=== PATIENT | female | born 1995 | race Caucasian/White ===

== ENCOUNTER 2020-02-23 13:00 | Outpatient (RCR) | payer OTHER, MEDICAID, SELFPAY ==
--- NOTE | 2020-01-27 18:53 | PT.OIE ---
Current Diagnoses Difficulty in walking, not elsewhere classified (01/27/20) Laceration of muscle and tendon of long extensor muscle of toe at ankle and foot level, left foot, initial encounter (01/27/20) Visit Care Team Role Provider Type Robert Aguilar DPM Attending Provider Non-Staff Primary Care Provider Referring Provider Specialty: Podiatry Address: [address] [place] [address], [phone] Email: Physical Therapy Initial Evaluation PT-OP-A Visit Information Start: 01/31/20 14:50 Freq: Status: Active Protocol: Document 01/27/20 15:15 AW (Rec: 01/31/20 15:52 AW [id number]) Out-Patient Physical Therapy Visit Information Visit Information Visit Type Initial Evaluation Visit Start Time 14:30 Visit Stop Time 15:15 Total Visit Minutes 45 Visit Number 12/25 Number of PET CARE ATTENDANT Visits 0 Evaluation Information Evaluation Date 01/27/20 PT-OP-B Current Condition Start: 01/31/20 14:50 Freq: Status: Active Protocol: Document 01/27/20 15:15 AW (Rec: 01/31/20 15:52 AW [id number]) Current Condition History of Current Condition Onset Date 12/18/19 Current Complaints left EHL laceration History of Current Condition While making dinner on , pt dropped a universal grinder tool on top of her left foot, resulting in laceration. She went to ED where her wound was closed with stitches, she was placed in a walking boot, and was referred to podiatry for laceration of her EHL tendon. Dr. Aguilar performed EHL tendon repair on 12/25/19. She used the boot realtime reporter for a week or two after surgery, but lately has been wearing it only out of the house. She reports limited pain/twinges with active great toe extension/toe-off when out of boot. She does have an area of numbness lateral to her surgical scar. Prior Treatments and Tests EHL tendon repair 12/25/19 Future Testing and Treatments Planned None identified. 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 PT-OP-C Subjective Start: 01/31/20 14:50 Freq: Status: Active Protocol: Document 01/27/20 15:15 AW (Rec: 01/31/20 15:52 AW [id number]) Patient Questionnaires Foot & Ankle Ability Measure- ADL and Sports FAAM-ADL Score 46/84 FAAM-ADL Impairment 40 to 59% Impaired (Score 33- 49) FAAM-Sport Score 0/28 FAAM-Sport Impairment 100% Impaired (Score 0) Lower Extremity Functional Scale LEFS Score 30/80 LEFS Impairment 60 to 79% Impaired (Score 17- 31) OP-PT Pain Assessment Pain Assessment Grid Paper Pain Assessment Grid Completed Yes Comments Pain Comments Pt notes pain in plantar left foot (1/10) and left distal posterior calf/tricpes surae insertion (2/10). PT-OP-G Mobility & Gait Start: 01/31/20 14:50 Freq: Status: Active Protocol: Document 01/27/20 15:15 AW (Rec: 01/31/20 15:52 AW [id number]) OP Gait Assessment Comments Gait Comments Pt demonstrates decreased LLE stance time, early LLE heel rise, lack of ankle rocker, decreased LLE toe off at terminal stance. PT-OP-K Range of Motion Start: 01/31/20 14:50 Freq: Status: Active Protocol: Document 01/27/20 15:15 AW (Rec: 01/31/20 15:52 AW [id number]) Knee Goniometric Range of Motion Knee Left Knee ROM WFL Yes Knee ROM Limitations Comments WNL bilaterally Ankle and Foot Goniometric Range of Motion Ankle and Foot Left Active Testing Position Supine Dorsiflexion with Knee Flexed 3 Dorsiflexion with Knee Extended 0 Right Active Testing Position Supine Dorsiflexion with Knee Flexed 12 Dorsiflexion with Knee Extended 12 Toe Range of Motion Toe Left Great Toe MTP Flexion Active (degrees) 14 MTP Extension Active (degrees) 35 DIP Flexion Passive (degrees) 25 Right Great Toe MTP Flexion Active (degrees) 30 MTP Extension Active (degrees) 75 DIP Flexion Active (degrees) 30 Toes ROM Limitations Toe ROM Limitations Muscle Weakness Comments Left great toe rests in adduction at IP joint with limited active extension, flexion, abduction PT-OP-M Strength Start: 01/31/20 14:50 Freq: Status: Active Protocol: Document 01/27/20 15:15 AW (Rec: 01/31/20 15:52 AW [id number]) Ankle/Foot Strength Ankle and Foot Manual Muscle Testing Left Dorsiflexion (L4) 4- Good- Plantarflexion (S1) 4- Good- Inversion 4- Good- Eversion (S1) 4- Good- Right Dorsiflexion (L4) 5 Normal Plantarflexion (S1) 5 Normal Inversion 5 Normal Eversion (S1) 5 Normal Toe Strength Toe Manual Muscle Testing Left Great Toe Flexion 4- Good- Extension 3+ Fair+ Right Great Toe Flexion 5 Normal Extension 5 Normal PT-OP-Q Treatments Start: 01/31/20 14:50 Freq: Status: Active Protocol: Document 01/27/20 15:15 AW (Rec: 01/31/20 15:52 AW [id number]) Therapeutic Exercises Sitting Exercises resisted ankle DF Sitting Exercise Name resisted ankle DF Side left Resistance level 1 Equipment Used TB Reps/Minutes 10 reps x 2 seated toe flexion extension PROM Sitting Exercise Name seated toe flexion extension PROM Side left Reps/Minutes 2 minutes Comments MTP and IP with cues for stabilizing proximally Standing Exercises gastroc/soleus stretch Standing Exercise Name gastroc/soleus stretch Side bilateral Reps/Minutes 2 min each position Comments cues to avoid painful range for left soleus PT-OP-T Assessment and Plan Start: 01/31/20 14:50 Freq: Status: Active Protocol: Document 01/27/20 15:15 AW (Rec: 01/31/20 15:52 AW [id number]) Physical Therapy Assessment Rehab Potential Rehabilitation Potential Excellent Evaluation Complexity Number of Personal Factors/Comorbidities 1-2 Number of Body Systems Impaired 1-2 Clinical Presentation at Evaluation Stable Impairments Impairments Activity Tolerance,Balance, Functional Activities, Functional Mobility,Gait,Pain, ROM,Sensation,Soft Tissue Mobility,Strength Goals Four Impairment limited ROM affecting involvement in regular activity Custodial Goal (LTG) Pt will return to yoga practice with limited modifications LTG Duration 04/20/2020 Three Impairment activity tolerance Short Term Goal (STG) Pt will walk 1/2 mile on even terrain without walking boot for enjoyment/exercise without increase in discomfort STG Duration 03/09/2020 Custodial Goal (LTG) Pt will walk 2 miles on even terrain without walking boot for enjoyment/exercise without increase in discomfort or 1 mile uneven terrain LTG Duration 04/20/2020 Two Impairment impairment in daily function ( 62.5% on LEFS) Short Term Goal (STG) Pt will score 45/80 or better on LEFS to demonstrate improved daily function STG Duration 03/09/2020 Butane Compressor Operator Goal (LTG) Pt will score 60/80 or better on LEFS to demonstrate improved daily function LTG Duration 04/20/2020 One Impairment pt lacks appropriate HEP Short Term Goal (STG) Pt will be independent with HEP for support of therapy services provided in clinic STG Duration 03/09/2020 Butane Compressor Operator Goal (LTG) Pt will be independent with maintenance HEP to sustain gain made in therapy LTG Duration 04/20/2020 Assessment Summary Assessment Zaid presents to outpatient PT as a low complexity evaluation one month following surgical repair of lacerated left EHL tendon. The injury was a result of trauma. 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 On exam, she demonstrates impaired left ankle and great toe range of motion and strength. In addition, her left great toe rests in adduction at the IP joint. Her injury and resulting impairments are limiting her ability to participate in her daily activities such as yoga, walking for pleasure, and work duties. She will benefit from skilled PT to address these impairments for return to prior level of function and to avoid risks associated with prolonged immobility. Physical Therapy Plan Frequency and Duration Frequency of Treatment 2x/Week Duration of Treatment 12 weeks Plan of Care Start Date 01/27/20 Plan of Care End Date 04/20/20 Therapeutic Interventions Therapeutic Interventions Balance Training,Gait Training ,Home Exercise Program,Joint Mobilizations,Manual Therapy, Neuromuscular Re-education, Orthotic/Prosthetic Management ,Patient/Caregiver Education, Self-Care/Home Management,Soft Tissue Mobilization,Taping, Therapeutic Activities, Therapeutic Exercises Modalities Cold Pack/Ice Massage,Electric Stimulation,Hot Packs Next Visit Focus/Plan Next Note Type Treatment Note Next Visit Plan - assess response to initial HEP - manual therapy as tolerated - progress strengthening for left foot/ankle
--- NOTE | 2020-01-27 18:54 | PT.OPPOC ---
Physical, Occupational & Speech Therapy At [facility] Current Diagnoses Difficulty in walking, not elsewhere classified (01/27/20) Laceration of muscle and tendon of long extensor muscle of toe at ankle and foot level, left foot, initial encounter (01/27/20) Visit Care Team Role Provider Type Robert Aguilar DPM Attending Provider Non-Staff Primary Care Provider Referring Provider Specialty: Podiatry Address: [address] [place] [address], [phone] Email: Plan Of Care PT-OP-T Assessment and Plan Start: 01/31/20 14:50 Freq: Status: Active Protocol: Document 01/27/20 15:15 AW (Rec: 01/31/20 15:52 AW [id number]) Physical Therapy Assessment Rehab Potential Rehabilitation Potential Excellent Evaluation Complexity Number of Personal Factors/Comorbidities 1-2 Number of Body Systems Impaired 1-2 Clinical Presentation at Evaluation Stable Impairments Impairments Activity Tolerance,Balance, Functional Activities, Functional Mobility,Gait,Pain, ROM,Sensation,Soft Tissue Mobility,Strength Goals Four Impairment limited ROM affecting involvement in regular activity Long-Term Goal (LTG) Pt will return to yoga practice with limited modifications LTG Duration 04/20/2020 Three Impairment activity tolerance Short Term Goal (STG) Pt will walk 1/2 mile on even terrain without walking boot for enjoyment/exercise without increase in discomfort STG Duration 03/09/2020 Spark Plug Tester Goal (LTG) Pt will walk 2 miles on even terrain without walking boot for enjoyment/exercise without increase in discomfort or 1 mile uneven terrain LTG Duration 04/20/2020 Two Impairment impairment in daily function ( 62.5% on LEFS) Short Term Goal (STG) Pt will score 45/80 or better on LEFS to demonstrate improved daily function STG Duration 03/09/2020 Spark Plug Tester Goal (LTG) Pt will score 60/80 or better on LEFS to demonstrate improved daily function LTG Duration 04/20/2020 One Impairment pt lacks appropriate HEP Short Term Goal (STG) Pt will be independent with HEP for support of therapy services provided in clinic STG Duration 03/09/2020 Long-Term Goal (LTG) Pt will be independent with maintenance HEP to sustain gain made in therapy LTG Duration 04/20/2020 Assessment Summary Assessment Zaid presents to outpatient PT as a low complexity evaluation one month following surgical repair of lacerated left EHL tendon. The injury was a result of trauma. 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 On exam, she demonstrates impaired left ankle and great toe range of motion and strength. In addition, her left great toe rests in adduction at the IP joint. Her injury and resulting impairments are limiting her ability to participate in her daily activities such as yoga, walking for pleasure, and work duties. She will benefit from skilled PT to address these impairments for return to prior level of function and to avoid risks associated with prolonged immobility. Physical Therapy Plan Frequency and Duration Frequency of Treatment 2x/Week Duration of Treatment 12 weeks Plan of Care Start Date 01/27/20 Plan of Care End Date 04/20/20 Therapeutic Interventions Therapeutic Interventions Balance Training,Gait Training ,Home Exercise Program,Joint Mobilizations,Manual Therapy, Neuromuscular Re-education, Orthotic/Prosthetic Management ,Patient/Caregiver Education, Self-Care/Home Management,Soft Tissue Mobilization,Taping, Therapeutic Activities, Therapeutic Exercises Modalities Cold Pack/Ice Massage,Electric Stimulation,Hot Packs Next Visit Focus/Plan Next Note Type Treatment Note Next Visit Plan - assess response to initial HEP - manual therapy as tolerated - progress strengthening for left foot/ankle Plan of Care Dates Plan of Care Start Date 01/27/20 Plan of Care End Date 04/20/20 Electronically Signed by: Gracia Watson, PT 01/31/20 0250 Please Sign and Return: I have reviewed this Plan of Care and certify that the skilled therapy services above are required to meet the patient?s needs. Physician Signature Date Printed Name and Credentials Clinical Instructor Signature Printed Name and Credentials
--- NOTE | 2020-02-03 15:50 | PT.OTN ---
Current Diagnoses Difficulty in walking, not elsewhere classified (02/03/20) Laceration of muscle and tendon of long extensor muscle of toe at ankle and foot level, left foot, initial encounter (02/03/20) Physical Therapy Treatment Note PT-OP-A Visit Information Start: 01/31/20 14:50 Freq: Status: Active Protocol: Document 02/03/20 14:40 AW (Rec: 02/03/20 15:50 AW [id number]) Out-Patient Physical Therapy Visit Information Visit Information Visit Type Treatment Note Visit Start Time 14:36 Visit Stop Time 15:30 Total Visit Minutes 54 Visit Number 01/25 Number of SHAMPOO ASSISTANT Visits 0 Evaluation Information Evaluation Date 01/27/20 PT-OP-B Current Condition Start: 01/31/20 14:50 Freq: Status: Active Protocol: Document 01/27/20 15:15 AW (Rec: 01/31/20 15:52 AW [id number]) Current Condition History of Current Condition Onset Date 12/18/19 Current Complaints left EHL laceration History of Current Condition While making dinner on , pt dropped a laboratory apparatus glass grinder on top of her left foot, resulting in laceration. She went to ED where her wound was closed with stitches, she was placed in a walking boot, and was referred to podiatry for laceration of her EHL tendon. Dr. Aguilar performed EHL tendon repair on 12/25/19. 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 She reports limited pain/twinges with active great toe extension/toe-off when out of boot. She does have an area of numbness lateral to her surgical scar. Prior Treatments and Tests EHL tendon repair 12/25/19 Future Testing and Treatments Planned None identified. 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 PT-OP-C Subjective Start: 01/31/20 14:50 Freq: Status: Active Protocol: Document 02/03/20 14:40 AW (Rec: 02/03/20 15:50 AW [id number]) OP-PT Subjective Patient Comments Patient Comments Pt walked in without the boot, stating she has been increasing her time out of the boot at home but continues to wear it for work and outside of the house. Patient Reported Progress Improving PT-OP-G Mobility & Gait Start: 01/31/20 14:50 Freq: Status: Active Protocol: Document 01/27/20 15:15 AW (Rec: 01/31/20 15:52 AW [id number]) OP Gait Assessment Comments Gait Comments Pt demonstrates decreased LLE stance time, early LLE heel rise, lack of ankle rocker, decreased LLE toe off at terminal stance. PT-OP-K Range of Motion Start: 01/31/20 14:50 Freq: Status: Active Protocol: Document 01/27/20 15:15 AW (Rec: 01/31/20 15:52 AW [id number]) Knee Goniometric Range of Motion Knee Left Knee ROM WFL Yes Knee ROM Limitations Comments WNL bilaterally Ankle and Foot Goniometric Range of Motion Ankle and Foot Left Active Testing Position Supine Dorsiflexion with Knee Flexed 3 Dorsiflexion with Knee Extended 0 Right Active Testing Position Supine Dorsiflexion with Knee Flexed 12 Dorsiflexion with Knee Extended 12 Toe Range of Motion Toe Left Great Toe MTP Flexion Active (degrees) 14 MTP Extension Active (degrees) 35 DIP Flexion Passive (degrees) 25 Right Great Toe MTP Flexion Active (degrees) 30 MTP Extension Active (degrees) 75 DIP Flexion Active (degrees) 30 Toes ROM Limitations Toe ROM Limitations Muscle Weakness Comments Left great toe rests in adduction at IP joint with limited active extension, flexion, abduction PT-OP-M Strength Start: 01/31/20 14:50 Freq: Status: Active Protocol: Document 01/27/20 15:15 AW (Rec: 01/31/20 15:52 AW [id number]) Ankle/Foot Strength Ankle and Foot Manual Muscle Testing Left Dorsiflexion (L4) 4- Good- Plantarflexion (S1) 4- Good- Inversion 4- Good- Eversion (S1) 4- Good- Right Dorsiflexion (L4) 5 Normal Plantarflexion (S1) 5 Normal Inversion 5 Normal Eversion (S1) 5 Normal Toe Strength Toe Manual Muscle Testing Left Great Toe Flexion 4- Good- Extension 3+ Fair+ Right Great Toe Flexion 5 Normal Extension 5 Normal PT-OP-Q Treatments Start: 01/31/20 14:50 Freq: Status: Active Protocol: Document 02/03/20 14:40 AW (Rec: 02/03/20 15:50 AW [id number]) Therapeutic Exercises Sitting Exercises great toe extension Sitting Exercise Name great toe extension Side left Reps/Minutes 15 reps Comments stabilized 2nd-5th toes; limited AROM but improved since eval towel scrunch Sitting Exercise Name towel scrunch Side left Comments painful active MTP/IP flexion; d/c'd and changed to exaggerated arch lift arch creation/lift Sitting Exercise Name arch creation/lift Side left Reps/Minutes 15 reps Comments cues to keep MTP and heel on floor ankle alphabet Sitting Exercise Name ankle alphabet Side left seated gastroc/soleus stretch Sitting Exercise Name seated gastroc/soleus stretch Side left Equipment Used strap Reps/Minutes 2 min knee bent, 2 min knee straight seated great toe IP abduction PROM Sitting Exercise Name seated great toe IP abduction PROM Side left Resistance manual Reps/Minutes 5 sec holds, 2 minutes Comments taught pt self mob, stabilizing proximal phalanx resisted ankle DF Sitting Exercise Name resisted ankle DF, eversion, inversion Side left Resistance level 2 Equipment Used TB Reps/Minutes 15 reps each plane seated toe flexion extension PROM Sitting Exercise Name seated toe flexion extension PROM Side left Reps/Minutes 2 minutes Comments MTP and IP with cues for stabilizing proximally Manual Therapy Treatment Soft Tissue Mobilization scar mobility Body Location left dorsal foot Mobilization Type Cross-Friction Intensity/Depth Moderate Comments No adhesions noted Joint Mobilizations MT 1-5 Joint MT 1-5 Direction anterior, posterior Grade III Reps/Duration 3 min Comments to maintain forefoot mobility MTP/IP Joint MTP/IP Grade III Body Position Hooklying Reps/Duration 6 min Comments flexion, extension, abduction PT-OP-R Modalities Start: 01/31/20 14:50 Freq: Status: Active Protocol: Document 02/03/20 14:40 AW (Rec: 02/03/20 15:50 AW [id number]) Hot Pack/Cold Pack Treatment Cold Pack Location left foot/ankle Patient Position Hooklying Treatment Duration (minutes) 10 Patient Tolerance Good Comments cryocuff to address swelling PT-OP-T Assessment and Plan Start: 01/31/20 14:50 Freq: Status: Active Protocol: Document 02/03/20 14:40 AW (Rec: 02/03/20 15:50 AW [id number]) Physical Therapy Assessment Impairments Impairments Activity Tolerance,Balance, Functional Activities, Functional Mobility,Gait,Pain, ROM,Sensation,Soft Tissue Mobility,Strength Goals Four Impairment limited ROM affecting involvement in regular activity Prison Goal (LTG) Pt will return to yoga practice with limited modifications LTG Duration 04/20/2020 Three Impairment activity tolerance Short Term Goal (STG) Pt will walk 1/2 mile on even terrain without walking boot for enjoyment/exercise without increase in discomfort STG Duration 03/09/2020 Prison Goal (LTG) Pt will walk 2 miles on even terrain without walking boot for enjoyment/exercise without increase in discomfort or 1 mile uneven terrain LTG Duration 04/20/2020 Two Impairment impairment in daily function ( 62.5% on LEFS) Short Term Goal (STG) Pt will score 45/80 or better on LEFS to demonstrate improved daily function STG Duration 03/09/2020 Prison Goal (LTG) Pt will score 60/80 or better on LEFS to demonstrate improved daily function LTG Duration 04/20/2020 One Impairment pt lacks appropriate HEP Short Term Goal (STG) Pt will be independent with HEP for support of therapy services provided in clinic STG Duration 03/09/2020 Prison Goal (LTG) Pt will be independent with maintenance HEP to sustain gain made in therapy LTG Duration 04/20/2020 Progress Towards Goals Progress Towards Goals Progressing Toward Goals Assessment Summary Assessment Zaid has been doing her PROM and resisted dorsiflexion at home. Added resisted eversion and inversion, ankle alphabets , and IP abduction PROM to her home program today. She was observed walking without the boot and did not demonstrate early heel lift or avoidance of toe-off in [place] shoes. She had pain with active MTP/ IP flexion, but otherwise tolerated ankle and toe strengthening this session. Physical Therapy Plan Frequency and Duration Frequency of Treatment 2x/Week Duration of Treatment 12 weeks Plan of Care Start Date 01/27/20 Plan of Care End Date 04/20/20 Therapeutic Interventions Therapeutic Interventions Balance Training,Gait Training ,Home Exercise Program,Joint Mobilizations,Manual Therapy, Neuromuscular Re-education, Orthotic/Prosthetic Management ,Patient/Caregiver Education, Self-Care/Home Management,Soft Tissue Mobilization,Taping, Therapeutic Activities, Therapeutic Exercises Modalities Cold Pack/Ice Massage,Electric Stimulation,Hot Packs Other Therapeutic Interventions Cryocuff Next Visit Focus/Plan Next Note Type Treatment Note Next Visit Plan - assess response to HEP - manual therapy as tolerated - progress strengthening for left foot/ankle, progress to weightbearing as tolerated
--- NOTE | 2020-02-05 16:44 | PT.OTN ---
Current Diagnoses Difficulty in walking, not elsewhere classified (02/05/20) Laceration of muscle and tendon of long extensor muscle of toe at ankle and foot level, left foot, initial encounter (02/05/20) Physical Therapy Treatment Note PT-OP-A Visit Information Start: 01/31/20 14:50 Freq: Status: Active Protocol: Document 02/05/20 08:20 EG (Rec: 02/05/20 16:38 EG [id number]) Out-Patient Physical Therapy Visit Information Visit Information Visit Type Treatment Note Visit Start Time 08:20 Visit Stop Time 09:15 Total Visit Minutes 55 Visit Number 02/22 Number of PHYSICS TEACHER Visits 0 PT-OP-B Current Condition Start: 01/31/20 14:50 Freq: Status: Active Protocol: Document 01/27/20 15:15 AW (Rec: 01/31/20 15:52 AW [id number]) Current Condition History of Current Condition Onset Date 12/18/19 Current Complaints left EHL laceration History of Current Condition While making dinner on , pt dropped a precision grinder on top of her left foot, resulting in laceration. She went to ED where her wound was closed with stitches, she was placed in a walking boot, and was referred to podiatry for laceration of her EHL tendon. Dr. Aguilar performed EHL tendon repair on 12/25/19. 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 She reports limited pain/twinges with active great toe extension/toe-off when out of boot. She does have an area of numbness lateral to her surgical scar. Prior Treatments and Tests EHL tendon repair 12/25/19 Future Testing and Treatments Planned None identified. 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 PT-OP-C Subjective Start: 01/31/20 14:50 Freq: Status: Active Protocol: Document 02/05/20 08:20 EG (Rec: 02/05/20 16:38 EG [id number]) OP-PT Subjective Patient Comments Patient Comments Patient walked in with flat shoes on and said that her foot was a little sore after doing exercises last session but it went away. Overall, she feels better but still is concerned when walking barefoot because the L toe doesn't lift all the way up. Patient Reported Progress Improving PT-OP-G Mobility & Gait Start: 01/31/20 14:50 Freq: Status: Active Protocol: Document 01/27/20 15:15 AW (Rec: 01/31/20 15:52 AW [id number]) OP Gait Assessment Comments Gait Comments Pt demonstrates decreased LLE stance time, early LLE heel rise, lack of ankle rocker, decreased LLE toe off at terminal stance. PT-OP-K Range of Motion Start: 01/31/20 14:50 Freq: Status: Active Protocol: Document 01/27/20 15:15 AW (Rec: 01/31/20 15:52 AW [id number]) Knee Goniometric Range of Motion Knee Left Knee ROM WFL Yes Knee ROM Limitations Comments WNL bilaterally Ankle and Foot Goniometric Range of Motion Ankle and Foot Left Active Testing Position Supine Dorsiflexion with Knee Flexed 3 Dorsiflexion with Knee Extended 0 Right Active Testing Position Supine Dorsiflexion with Knee Flexed 12 Dorsiflexion with Knee Extended 12 Toe Range of Motion Toe Left Great Toe MTP Flexion Active (degrees) 14 MTP Extension Active (degrees) 35 DIP Flexion Passive (degrees) 25 Right Great Toe MTP Flexion Active (degrees) 30 MTP Extension Active (degrees) 75 DIP Flexion Active (degrees) 30 Toes ROM Limitations Toe ROM Limitations Muscle Weakness Comments Left great toe rests in adduction at IP joint with limited active extension, flexion, abduction PT-OP-M Strength Start: 01/31/20 14:50 Freq: Status: Active Protocol: Document 01/27/20 15:15 AW (Rec: 01/31/20 15:52 AW [id number]) Ankle/Foot Strength Ankle and Foot Manual Muscle Testing Left Dorsiflexion (L4) 4- Good- Plantarflexion (S1) 4- Good- Inversion 4- Good- Eversion (S1) 4- Good- Right Dorsiflexion (L4) 5 Normal Plantarflexion (S1) 5 Normal Inversion 5 Normal Eversion (S1) 5 Normal Toe Strength Toe Manual Muscle Testing Left Great Toe Flexion 4- Good- Extension 3+ Fair+ Right Great Toe Flexion 5 Normal Extension 5 Normal PT-OP-Q Treatments Start: 01/31/20 14:50 Freq: Status: Active Protocol: Document 02/05/20 08:20 EG (Rec: 02/05/20 16:38 EG [id number]) Therapeutic Exercises Sitting Exercises great toe extension Sitting Exercise Name great toe extension Side left Reps/Minutes 15 reps Comments stabilized proximal phalyx towel scrunch Sitting Exercise Name towel scrunch on slide board Side left Comments painful active MTP/IP flexion; d/c'd and changed to exaggerated arch lift arch creation/lift Sitting Exercise Name arch creation/lift Side left Reps/Minutes 15 reps seated gastroc/soleus stretch Sitting Exercise Name seated gastroc/soleus stretch Side left Equipment Used strap Reps/Minutes 2 min knee straight seated toe flexion extension PROM Sitting Exercise Name seated toe flexion extension PROM Side left Reps/Minutes 2 minutes Comments MTP and IP with cues for stabilizing proximally Gait Training Gait Activity // bars walking Description Walking in // bars barefoot Device Used // bars Level of Assistance min A from // bars Surface carpet Distance/Duration 10x back and forth Treatment Focus weight acceptance, MTP extension, MTP push off Comments emphasize increase of toe spreading and extension of toe before forefoot planting Manual Therapy Treatment Soft Tissue Mobilization scar mobility Body Location left dorsal foot Mobilization Type Cross-Friction Intensity/Depth Moderate Comments No adhesions noted Joint Mobilizations MTP/IP Joint MTP/IP Grade III Body Position Hooklying Reps/Duration 6 min Comments flexion, extension, abduction PT-OP-R Modalities Start: 01/31/20 14:50 Freq: Status: Active Protocol: Document 02/05/20 08:20 EG (Rec: 02/05/20 16:38 EG [id number]) Hot Pack/Cold Pack Treatment Cold Pack Location left foot/ankle Patient Position Hooklying Treatment Duration (minutes) 15 Patient Tolerance Good Comments cryocuff to address swelling PT-OP-T Assessment and Plan Start: 01/31/20 14:50 Freq: Status: Active Protocol: Document 02/05/20 08:20 EG (Rec: 02/05/20 16:38 EG [id number]) Physical Therapy Assessment Assessment Summary Assessment Patient tolerated treatment well this morning. She has been very compliant with HEP and is otherwise doing well. She does have extension lag in IP joint and has increased tension when MTP and IP is in flexion stretching extensor hallucis tendon. Patient should continue with strength training of intrinsic foot musculature as well as progressing weight tolerance on the bare foot. Important to continue to work on 1st IP extension and progressing weight strengthening of ankle and extensor hallucis. Physical Therapy Plan Next Visit Focus/Plan Next Note Type Treatment Note Next Visit Plan - manual therapy as tolerated - progress strengthening for left foot/ankle, continue to progress weightbearing as tolerated ISarah DPT, supervised all treatment performed by, and agreed with the plan of care, as performed by Iris Ramsey, JASON.
--- NOTE | 2020-02-11 10:48 | PT.OTN ---
Current Diagnoses Difficulty in walking, not elsewhere classified (02/11/20) Laceration of muscle and tendon of long extensor muscle of toe at ankle and foot level, left foot, initial encounter (02/11/20) Physical Therapy Treatment Note PT-OP-A Visit Information Start: 01/31/20 14:50 Freq: Status: Active Protocol: Document 02/11/20 10:11 SP (Rec: 02/11/20 10:28 SP [id number]) Out-Patient Physical Therapy Visit Information Visit Information Visit Type Treatment Note Visit Start Time 08:20 Visit Stop Time 09:16 Total Visit Minutes 56 Visit Number 03/25 Number of REFUND CLERK Visits 0 PT-OP-B Current Condition Start: 01/31/20 14:50 Freq: Status: Active Protocol: Document 01/27/20 15:15 AW (Rec: 01/31/20 15:52 AW [id number]) Current Condition History of Current Condition Onset Date 12/18/19 Current Complaints left EHL laceration History of Current Condition While making dinner on , pt dropped a rotary surface grinder on top of her left foot, resulting in laceration. She went to ED where her wound was closed with stitches, she was placed in a walking boot, and was referred to podiatry for laceration of her EHL tendon. Dr. Aguilar performed EHL tendon repair on 12/25/19. 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 She reports limited pain/twinges with active great toe extension/toe-off when out of boot. She does have an area of numbness lateral to her surgical scar. Prior Treatments and Tests EHL tendon repair 12/25/19 Future Testing and Treatments Planned None identified. 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 PT-OP-C Subjective Start: 01/31/20 14:50 Freq: Status: Active Protocol: Document 02/11/20 10:11 SP (Rec: 02/11/20 10:28 SP [email or web address]) OP-PT Subjective Patient Comments Patient Comments Pt reports she is not having much foot pain right now. Her biggest concern is not being able to fully bend her big toe up/down. She states that towel scrunches are difficult. Pt has been going to the beach and using the sand to dig her feet/toes into it and try to work on her mobility. PT-OP-G Mobility & Gait Start: 01/31/20 14:50 Freq: Status: Active Protocol: Document 01/27/20 15:15 AW (Rec: 01/31/20 15:52 AW [id number]) OP Gait Assessment Comments Gait Comments Pt demonstrates decreased LLE stance time, early LLE heel rise, lack of ankle rocker, decreased LLE toe off at terminal stance. PT-OP-K Range of Motion Start: 01/31/20 14:50 Freq: Status: Active Protocol: Document 01/27/20 15:15 AW (Rec: 01/31/20 15:52 AW [id number]) Knee Goniometric Range of Motion Knee Left Knee ROM WFL Yes Knee ROM Limitations Comments WNL bilaterally Ankle and Foot Goniometric Range of Motion Ankle and Foot Left Active Testing Position Supine Dorsiflexion with Knee Flexed 3 Dorsiflexion with Knee Extended 0 Right Active Testing Position Supine Dorsiflexion with Knee Flexed 12 Dorsiflexion with Knee Extended 12 Toe Range of Motion Toe Left Great Toe MTP Flexion Active (degrees) 14 MTP Extension Active (degrees) 35 DIP Flexion Passive (degrees) 25 Right Great Toe MTP Flexion Active (degrees) 30 MTP Extension Active (degrees) 75 DIP Flexion Active (degrees) 30 Toes ROM Limitations Toe ROM Limitations Muscle Weakness Comments Left great toe rests in adduction at IP joint with limited active extension, flexion, abduction PT-OP-M Strength Start: 01/31/20 14:50 Freq: Status: Active Protocol: Document 01/27/20 15:15 AW (Rec: 01/31/20 15:52 AW [id number]) Ankle/Foot Strength Ankle and Foot Manual Muscle Testing Left Dorsiflexion (L4) 4- Good- Plantarflexion (S1) 4- Good- Inversion 4- Good- Eversion (S1) 4- Good- Right Dorsiflexion (L4) 5 Normal Plantarflexion (S1) 5 Normal Inversion 5 Normal Eversion (S1) 5 Normal Toe Strength Toe Manual Muscle Testing Left Great Toe Flexion 4- Good- Extension 3+ Fair+ Right Great Toe Flexion 5 Normal Extension 5 Normal PT-OP-Q Treatments Start: 01/31/20 14:50 Freq: Status: Active Protocol: Document 02/11/20 10:11 SP (Rec: 02/11/20 10:28 SP [email or web address]) Therapeutic Exercises Sitting Exercises 4-way ankle Side left Resistance L2 Comments PF/DF/INV/EVER towel scrunch Sitting Exercise Name towel scrunch Side left Reps/Minutes 30 arch creation/lift Sitting Exercise Name arch creation/lift Side left Reps/Minutes 30 Standing Exercises heel raises Comments bilateral, repeat in SLS with focus on coming up on her toes . LAXMI Comments gastroc stretch Gait Training Gait Activity // bars walking Description Walking in // bars Surface carpet Distance/Duration 6x back and forth Treatment Focus weight acceptance, MTP extension, MTP push off Comments Emphasize shifting weight to L and not letting R pelvis drop in mid-stance. Let pt stay in SLS at mid-stance for 20-30 seconds prior to taking next step. Manual Therapy Treatment Soft Tissue Mobilization STM Body Location L dorsum of foot, plantarfascia Mobilization Type Rolling,Strumming,Sustained Pressure Intensity/Depth Moderate Body Position Sitting Comments add in gastroc/tib anterior stretch scar mobility Body Location left dorsal foot Mobilization Type Cross-Friction Intensity/Depth Moderate Comments No adhesions noted Joint Mobilizations talus Joint L talocrural Direction posterior glide Grade III Body Position Sitting calcaneal distraction Joint L subtalar Grade III Body Position Sitting MTP/IP Joint MTP/IP Direction anterior/posterior Grade III Body Position Sitting Neuro Re-Education Treatment Balance Activities SLS Comments on carpet, repeat on blue foam . PT-OP-R Modalities Start: 01/31/20 14:50 Freq: Status: Active Protocol: Document 02/11/20 10:11 SP (Rec: 02/11/20 10:28 SP [email or web address]) Hot Pack/Cold Pack Treatment Cold Pack Location left foot/ankle Patient Position Hooklying Treatment Duration (minutes) 15 Patient Tolerance Good Comments cryocuff to address swelling PT-OP-T Assessment and Plan Start: 01/31/20 14:50 Freq: Status: Active Protocol: Document 02/11/20 10:11 SP (Rec: 02/11/20 10:28 SP [email or web address]) Physical Therapy Assessment Goals Four Impairment limited ROM affecting involvement in regular activity Packager Head Goal (LTG) Pt will return to yoga practice with limited modifications LTG Duration 04/20/2020 Three Impairment activity tolerance Short Term Goal (STG) Pt will walk 1/2 mile on even terrain without walking boot for enjoyment/exercise without increase in discomfort STG Duration 03/09/2020 Packager Head Goal (LTG) Pt will walk 2 miles on even terrain without walking boot for enjoyment/exercise without increase in discomfort or 1 mile uneven terrain LTG Duration 04/20/2020 Two Impairment impairment in daily function ( 62.5% on LEFS) Short Term Goal (STG) Pt will score 45/80 or better on LEFS to demonstrate improved daily function STG Duration 03/09/2020 Mcfp Goal (LTG) Pt will score 60/80 or better on LEFS to demonstrate improved daily function LTG Duration 04/20/2020 One Impairment pt lacks appropriate HEP Short Term Goal (STG) Pt will be independent with HEP for support of therapy services provided in clinic STG Duration 03/09/2020 Mcfp Goal (LTG) Pt will be independent with maintenance HEP to sustain gain made in therapy LTG Duration 04/20/2020 Assessment Summary Assessment Pt tolerated strengthening and balance activities well. She needed cueing during arch lifts to keep heel and met head on the ground. Pt benefit from L talocrural and subtalar jt mobs in order to increase L dorsiflexion. She was able to complete gait training with minor cueing for posture. Physical Therapy Plan Frequency and Duration Frequency of Treatment 2x/Week Duration of Treatment 12 weeks Plan of Care Start Date 01/27/20 Plan of Care End Date 04/20/20 Next Visit Focus/Plan Next Note Type Treatment Note Next Visit Plan jt mobs to increase dorsiflexion and great toe ext , reassess gait, progress balance activities.
--- NOTE | 2020-02-16 13:15 | PT.OTN ---
Current Diagnoses Difficulty in walking, not elsewhere classified (02/16/20) Laceration of muscle and tendon of long extensor muscle of toe at ankle and foot level, left foot, initial encounter (02/16/20) Physical Therapy Treatment Note PT-OP-A Visit Information Start: 01/31/20 14:50 Freq: Status: Active Protocol: Document 02/16/20 12:15 SP (Rec: 02/16/20 13:29 SP [id number]) Out-Patient Physical Therapy Visit Information Visit Information Visit Type Treatment Note Visit Start Time 12:15 Visit Stop Time 13:15 Total Visit Minutes 60 Visit Number 04/24 Number of WILLOWER Visits 1 PT-OP-B Current Condition Start: 01/31/20 14:50 Freq: Status: Active Protocol: Document 01/27/20 15:15 AW (Rec: 01/31/20 15:52 AW [id number]) Current Condition History of Current Condition Onset Date 12/18/19 Current Complaints left EHL laceration History of Current Condition While making dinner on , pt dropped a tool and cutter grinder on top of her left foot, resulting in laceration. She went to ED where her wound was closed with stitches, she was placed in a walking boot, and was referred to podiatry for laceration of her EHL tendon. Dr. Aguilar performed EHL tendon repair on 12/25/19. She used the boot time study clerk for a week or two after surgery, but lately has been wearing it only out of the house. She reports limited pain/twinges with active great toe extension/toe-off when out of boot. She does have an area of numbness lateral to her surgical scar. Prior Treatments and Tests EHL tendon repair 12/25/19 Future Testing and Treatments Planned None identified. 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 PT-OP-C Subjective Start: 01/31/20 14:50 Freq: Status: Active Protocol: Document 02/16/20 12:15 SP (Rec: 02/16/20 13:29 SP [id number]) OP-PT Subjective Patient Comments Patient Comments Pt stated sensation improving 1st MTP LLE but not full extension of distal segment. Has been busy and so havent' completed exercises in past couple days. PT-OP-G Mobility & Gait Start: 01/31/20 14:50 Freq: Status: Active Protocol: Document 01/27/20 15:15 AW (Rec: 01/31/20 15:52 AW [id number]) OP Gait Assessment Comments Gait Comments Pt demonstrates decreased LLE stance time, early LLE heel rise, lack of ankle rocker, decreased LLE toe off at terminal stance. PT-OP-K Range of Motion Start: 01/31/20 14:50 Freq: Status: Active Protocol: Document 01/27/20 15:15 AW (Rec: 01/31/20 15:52 AW [id number]) Knee Goniometric Range of Motion Knee Left Knee ROM WFL Yes Knee ROM Limitations Comments WNL bilaterally Ankle and Foot Goniometric Range of Motion Ankle and Foot Left Active Testing Position Supine Dorsiflexion with Knee Flexed 3 Dorsiflexion with Knee Extended 0 Right Active Testing Position Supine Dorsiflexion with Knee Flexed 12 Dorsiflexion with Knee Extended 12 Toe Range of Motion Toe Left Great Toe MTP Flexion Active (degrees) 14 MTP Extension Active (degrees) 35 DIP Flexion Passive (degrees) 25 Right Great Toe MTP Flexion Active (degrees) 30 MTP Extension Active (degrees) 75 DIP Flexion Active (degrees) 30 Toes ROM Limitations Toe ROM Limitations Muscle Weakness Comments Left great toe rests in adduction at IP joint with limited active extension, flexion, abduction PT-OP-M Strength Start: 01/31/20 14:50 Freq: Status: Active Protocol: Document 01/27/20 15:15 AW (Rec: 01/31/20 15:52 AW [id number]) Ankle/Foot Strength Ankle and Foot Manual Muscle Testing Left Dorsiflexion (L4) 4- Good- Plantarflexion (S1) 4- Good- Inversion 4- Good- Eversion (S1) 4- Good- Right Dorsiflexion (L4) 5 Normal Plantarflexion (S1) 5 Normal Inversion 5 Normal Eversion (S1) 5 Normal Toe Strength Toe Manual Muscle Testing Left Great Toe Flexion 4- Good- Extension 3+ Fair+ Right Great Toe Flexion 5 Normal Extension 5 Normal PT-OP-Q Treatments Start: 01/31/20 14:50 Freq: Status: Active Protocol: Document 02/16/20 12:15 SP (Rec: 02/16/20 13:29 SP [id number]) Therapeutic Exercises Sitting Exercises 4-way ankle Side left Resistance L2 x5, L3 x10 each (HEP continue L3 Comments PF/DF/INV/EVER great toe extension Sitting Exercise Name great toe extension Side left Resistance AROM then Rubber band AAROM Reps/Minutes 15 reps Comments cued stabilized proximal phalyx (fingers/ other foot) arch creation/lift Sitting Exercise Name arch creation/lift Side left Reps/Minutes x10 Comments review seated great toe IP abduction PROM Sitting Exercise Name seated great toe IP abduction PROM Side left Resistance AROM Reps/Minutes 5 sec holds, 1 minute Standing Exercises toe off pre gait over t[place]ira Standing Exercise Name step over back toe off Side bilateral Equipment Used foam roller balance PRN Reps/Minutes 2x5 Comments cued slow pacing for ankel stability SLS Side bilateral Reps/Minutes 30 x2 heel raises Reps/Minutes x10 Comments bilateral, repeat in SLS with focus on coming up on her toes . gastroc/soleus stretch Standing Exercise Name discussed off step Comments not performed Gait Training Gait Activity heel/toe/duck (eccentric PF) Description toe, heel, toe<> heel together Treatment Focus 10 ft x3 laps each Manual Therapy Treatment Soft Tissue Mobilization tactile sensitation Body Location LLE 1st MTP Comments 2 min washcloth brisk rubbing to elicit increase sensitation feedback or numbness improvement STM Body Location L dorsum of foot, plantarfascia Mobilization Type Rolling,Strumming,Sustained Pressure Intensity/Depth Moderate Body Position Sitting Comments add in gastroc/tib anterior stretch scar mobility Body Location left dorsal foot Mobilization Type Myofascial Release,Rolling Intensity/Depth Moderate Comments No adhesions noted Joint Mobilizations talus Joint L talocrural Direction posterior glide Grade III Body Position Sitting calcaneal distraction Joint L subtalar Grade III Body Position Sitting MT 1-5 Joint MT 1-5 Direction anterior, posterior Grade III Reps/Duration 3 min Comments to maintain forefoot mobility MTP/IP Joint MTP/IP Direction anterior/posterior Grade III Body Position Sitting PT-OP-R Modalities Start: 01/31/20 14:50 Freq: Status: Active Protocol: Document 02/16/20 12:15 SP (Rec: 02/16/20 13:31 SP [id number]) Hot Pack/Cold Pack Treatment Cold Pack Location left foot/ankle Patient Position Hooklying Treatment Duration (minutes) 15 Patient Tolerance Good Comments cryocuff to address swelling PT-OP-T Assessment and Plan Start: 01/31/20 14:50 Freq: Status: Active Protocol: Document 02/16/20 12:15 SP (Rec: 02/16/20 13:29 SP [id number]) Physical Therapy Assessment Goals Four Impairment limited ROM affecting involvement in regular activity Snf Goal (LTG) Pt will return to yoga practice with limited modifications LTG Duration 04/20/2020 Three Impairment activity tolerance Short Term Goal (STG) Pt will walk 1/2 mile on even terrain without walking boot for enjoyment/exercise without increase in discomfort STG Duration 03/09/2020 Rug Hooker Goal (LTG) Pt will walk 2 miles on even terrain without walking boot for enjoyment/exercise without increase in discomfort or 1 mile uneven terrain LTG Duration 04/20/2020 Two Impairment impairment in daily function ( 62.5% on LEFS) Short Term Goal (STG) Pt will score 45/80 or better on LEFS to demonstrate improved daily function STG Duration 03/09/2020 Snf Goal (LTG) Pt will score 60/80 or better on LEFS to demonstrate improved daily function LTG Duration 04/20/2020 One Impairment pt lacks appropriate HEP Short Term Goal (STG) Pt will be independent with HEP for support of therapy services provided in clinic STG Duration 03/09/2020 Rug Hooker Goal (LTG) Pt will be independent with maintenance HEP to sustain gain made in therapy LTG Duration 04/20/2020 Assessment Summary Assessment Pt tolerated tx well. Reviewed HEP with good tolerance. Provided manual then instructed self facilitation sensitation over MTP, AAROM 1st MTP extension as needed, pre gait standing exercises to improve ankle stabilization and 1st MTP strength within AROM. Pt demonstrated increased DIP extension to neutral end of tx with decreased toe flexion compensations and ability to improve single mid stance p hase. Pt requested use of cryocuff end of tx. Physical Therapy Plan Frequency and Duration Frequency of Treatment 2x/Week Duration of Treatment 12 weeks Plan of Care Start Date 01/27/20 Plan of Care End Date 04/20/20 Therapeutic Interventions Therapeutic Interventions Balance Training,Gait Training ,Home Exercise Program,Joint Mobilizations,Manual Therapy, Neuromuscular Re-education, Orthotic/Prosthetic Management ,Patient/Caregiver Education, Self-Care/Home Management,Soft Tissue Mobilization,Taping, Therapeutic Activities, Therapeutic Exercises Modalities Cold Pack/Ice Massage,Electric Stimulation,Hot Packs Other Therapeutic Interventions Cryocuff Next Visit Focus/Plan Next Note Type Treatment Note Next Visit Plan Assess response to added exercises last tx. Continue per PT POC: jt mobs to increase dorsiflexion and great toe ext, reassess gait, progress balance activities.
--- NOTE | 2020-02-23 14:10 | PT.OTN ---
Current Diagnoses Difficulty in walking, not elsewhere classified (02/23/20) Laceration of muscle and tendon of long extensor muscle of toe at ankle and foot level, left foot, initial encounter (02/23/20) Physical Therapy Treatment Note PT-OP-A Visit Information Start: 01/31/20 14:50 Freq: Status: Active Protocol: Document 02/23/20 12:59 SAK (Rec: 02/23/20 14:03 SAK [id number]) Out-Patient Physical Therapy Visit Information Visit Information Visit Type Treatment Note Visit Start Time 12:00 Total Visit Minutes 60 Visit Number 05/25 Number of WEB SIZER Visits 0 PT-OP-B Current Condition Start: 01/31/20 14:50 Freq: Status: Active Protocol: Document 01/27/20 15:15 AW (Rec: 01/31/20 15:52 AW [id number]) Current Condition History of Current Condition Onset Date 12/18/19 Current Complaints left EHL laceration History of Current Condition While making dinner on , pt dropped a die grinder on top of her left foot, resulting in laceration. She went to ED where her wound was closed with stitches, she was placed in a walking boot, and was referred to podiatry for laceration of her EHL tendon. Dr. Aguilar performed EHL tendon repair on 12/25/19. She used the boot brim curler for a week or two after surgery, but lately has been wearing it only out of the house. She reports limited pain/twinges with active great toe extension/toe-off when out of boot. She does have an area of numbness lateral to her surgical scar. Prior Treatments and Tests EHL tendon repair 12/25/19 Future Testing and Treatments Planned None identified. 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 PT-OP-C Subjective Start: 01/31/20 14:50 Freq: Status: Active Protocol: Document 02/23/20 12:59 SAK (Rec: 02/23/20 14:03 SAK [id number]) OP-PT Subjective Patient Comments Patient Comments doing exercises more consistently, pain only with platarflexion. PT-OP-G Mobility & Gait Start: 01/31/20 14:50 Freq: Status: Active Protocol: Document 01/27/20 15:15 AW (Rec: 01/31/20 15:52 AW [id number]) OP Gait Assessment Comments Gait Comments Pt demonstrates decreased LLE stance time, early LLE heel rise, lack of ankle rocker, decreased LLE toe off at terminal stance. PT-OP-K Range of Motion Start: 01/31/20 14:50 Freq: Status: Active Protocol: Document 01/27/20 15:15 AW (Rec: 01/31/20 15:52 AW [id number]) Knee Goniometric Range of Motion Knee Left Knee ROM WFL Yes Knee ROM Limitations Comments WNL bilaterally Ankle and Foot Goniometric Range of Motion Ankle and Foot Left Active Testing Position Supine Dorsiflexion with Knee Flexed 3 Dorsiflexion with Knee Extended 0 Right Active Testing Position Supine Dorsiflexion with Knee Flexed 12 Dorsiflexion with Knee Extended 12 Toe Range of Motion Toe Left Great Toe MTP Flexion Active (degrees) 14 MTP Extension Active (degrees) 35 DIP Flexion Passive (degrees) 25 Right Great Toe MTP Flexion Active (degrees) 30 MTP Extension Active (degrees) 75 DIP Flexion Active (degrees) 30 Toes ROM Limitations Toe ROM Limitations Muscle Weakness Comments Left great toe rests in adduction at IP joint with limited active extension, flexion, abduction PT-OP-M Strength Start: 01/31/20 14:50 Freq: Status: Active Protocol: Document 01/27/20 15:15 AW (Rec: 01/31/20 15:52 AW [id number]) Ankle/Foot Strength Ankle and Foot Manual Muscle Testing Left Dorsiflexion (L4) 4- Good- Plantarflexion (S1) 4- Good- Inversion 4- Good- Eversion (S1) 4- Good- Right Dorsiflexion (L4) 5 Normal Plantarflexion (S1) 5 Normal Inversion 5 Normal Eversion (S1) 5 Normal Toe Strength Toe Manual Muscle Testing Left Great Toe Flexion 4- Good- Extension 3+ Fair+ Right Great Toe Flexion 5 Normal Extension 5 Normal PT-OP-Q Treatments Start: 01/31/20 14:50 Freq: Status: Active Protocol: Document 02/23/20 12:59 [facility] (Rec: 02/23/20 14:03 [facility] [id number]) Therapeutic Exercises Sitting Exercises 4-way ankle Side left Resistance L3 x 10 Comments PF/DF/INV/EVER great toe extension Sitting Exercise Name great toe extension Side left Resistance AROM then Rubber band AAROM Reps/Minutes 15 reps Comments cued stabilized proximal phalyx (fingers/ other foot) arch creation/lift Sitting Exercise Name arch creation/lift Side left Reps/Minutes x10 Comments review seated great toe IP abduction PROM Sitting Exercise Name seated great toe IP abduction PROM Side left Resistance AROM Reps/Minutes 5 sec holds, 1 minute Standing Exercises heel raise, single leg Reps/Minutes 10x short foot Reps/Minutes 10x toe off pre gait over [place] Standing Exercise Name step over back toe off Side bilateral Equipment Used foam roller balance PRN Reps/Minutes 2x5 Comments cued slow pacing for ankel stability SLS Side bilateral Reps/Minutes 30 x2 heel raises Reps/Minutes x10 Comments bilateral, repeat in SLS with focus on coming up on her toes . gastroc/soleus stretch Standing Exercise Name LAXMI Reps/Minutes 2x Manual Therapy Treatment Soft Tissue Mobilization STM Body Location L dorsum of foot, plantarfascia Mobilization Type Rolling,Strumming,Sustained Pressure Intensity/Depth Moderate Body Position Sitting Comments add in gastroc/tib anterior stretch scar mobility Body Location left dorsal foot Mobilization Type Myofascial Release,Rolling Intensity/Depth Moderate Comments No adhesions noted Joint Mobilizations MT 1-5 Joint MT 1-5 Direction anterior, posterior Grade III Reps/Duration 3 min Comments to maintain forefoot mobility MTP/IP Joint MTP/IP Direction anterior/posterior Grade III Body Position Sitting Taping kinesiotape Body Location right great toe Treatment Focus facilitate neutral alignment Type of Tape kinesiotape Skin Inspection intact Neuro Re-Education Treatment Balance Activities SLS Comments on carpet, repeat on blue foam . PT-OP-R Modalities Start: 01/31/20 14:50 Freq: Status: Active Protocol: Document 02/23/20 12:59 [facility] (Rec: 02/23/20 14:03 [facility] [id number]) Hot Pack/Cold Pack Treatment Cold Pack Location left foot/ankle Patient Position Hooklying Treatment Duration (minutes) 15 Patient Tolerance Good Comments cryocuff to address swelling PT-OP-T Assessment and Plan Start: 01/31/20 14:50 Freq: Status: Active Protocol: Document 02/23/20 12:59 [facility] (Rec: 02/23/20 14:03 [facility] [id number]) Physical Therapy Assessment Goals Four Impairment limited ROM affecting involvement in regular activity Drain Technician Goal (LTG) Pt will return to yoga practice with limited modifications LTG Duration 04/20/2020 Three Impairment activity tolerance Short Term Goal (STG) Pt will walk 1/2 mile on even terrain without walking boot for enjoyment/exercise without increase in discomfort STG Duration 03/09/2020 Correction Goal (LTG) Pt will walk 2 miles on even terrain without walking boot for enjoyment/exercise without increase in discomfort or 1 mile uneven terrain LTG Duration 04/20/2020 Two Impairment impairment in daily function ( 62.5% on LEFS) Short Term Goal (STG) Pt will score 45/80 or better on LEFS to demonstrate improved daily function STG Duration 03/09/2020 Drain Technician Goal (LTG) Pt will score 60/80 or better on LEFS to demonstrate improved daily function LTG Duration 04/20/2020 One Impairment pt lacks appropriate HEP Short Term Goal (STG) Pt will be independent with HEP for support of therapy services provided in clinic STG Duration 03/09/2020 Drain Technician Goal (LTG) Pt will be independent with maintenance HEP to sustain gain made in therapy LTG Duration 04/20/2020 Assessment Summary Assessment Patient making good goal progress, still limited active great toe extension. Improved compliance to HEP. Feels kinesiotape helpful. Physical Therapy Plan Frequency and Duration Frequency of Treatment 2x/Week Duration of Treatment 12 weeks Plan of Care Start Date 01/27/20 Plan of Care End Date 04/20/20 Therapeutic Interventions Therapeutic Interventions Balance Training,Gait Training ,Home Exercise Program,Joint Mobilizations,Manual Therapy, Neuromuscular Re-education, Orthotic/Prosthetic Management ,Patient/Caregiver Education, Self-Care/Home Management,Soft Tissue Mobilization,Taping, Therapeutic Activities, Therapeutic Exercises Modalities Cold Pack/Ice Massage,Electric Stimulation,Hot Packs Other Therapeutic Interventions Cryocuff Next Visit Focus/Plan Next Note Type Treatment Note Next Visit Plan PT clinic to be closed at least through the end of March , patient has handouts for all HEP, and today we discussed progression of activities and exercises. Kinesiotape issued for self-taping with information on purchasing if helpful. Patient demonstrated good understanding of all.
--- NOTE | 2020-03-30 12:26 | PT-OP ANOTE ---
Contacted pt to let her know the clinic would be re-opening on a limited basis soon. Pt was assured that this clinic will be following all CDC guidelines related to COVID-19 and will have reduced staffing in order to be able to maintain appropriate distance. Pt expressed interest in scheduling follow-up appointments. Scheduling was notified to contact the patient to schedule.
--- NOTE | 2020-04-13 16:32 | PT-OP ANOTE ---
Pt no-showed to 04/13/20 appointment
--- NOTE | 2020-08-03 09:40 | PT.OPDS ---
Current Diagnoses Difficulty in walking, not elsewhere classified (02/23/20) Laceration of muscle and tendon of long extensor muscle of toe at ankle and foot level, left foot, initial encounter (02/23/20) Visit Care Team Role Provider Type Robert Aguilar DPM Attending Provider Non-Staff Primary Care Provider Referring Provider Specialty: Podiatry Address: [address] [place] [address], [phone] Email: Visit Number Visit Number 05/25 Discharge Summary PT-OP-B Current Condition Start: 01/31/20 14:50 Freq: Status: Active Protocol: Document 01/27/20 15:15 AW (Rec: 01/31/20 15:52 AW [id number]) Current Condition History of Current Condition Onset Date 12/18/19 Current Complaints left EHL laceration History of Current Condition While making dinner on , pt dropped a lens grinder apprentice on top of her left foot, resulting in laceration. She went to ED where her wound was closed with stitches, she was placed in a walking boot, and was referred to podiatry for laceration of her EHL tendon. Dr. Aguilar performed EHL tendon repair on 12/25/19. She used the boot multimedia engineer for a week or two after surgery, but lately has been wearing it only out of the house. She reports limited pain/twinges with active great toe extension/toe-off when out of boot. She does have an area of numbness lateral to her surgical scar. Prior Treatments and Tests EHL tendon repair 12/25/19 Future Testing and Treatments Planned None identified. 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 PT-OP-C Subjective Start: 01/31/20 14:50 Freq: Status: Active Protocol: Document 02/23/20 12:59 SAK (Rec: 02/23/20 14:03 SAK [id number]) OP-PT Subjective Patient Comments Patient Comments doing exercises more consistently, pain only with platarflexion. PT-OP-G Mobility & Gait Start: 01/31/20 14:50 Freq: Status: Active Protocol: Document 01/27/20 15:15 AW (Rec: 01/31/20 15:52 AW [id number]) OP Gait Assessment Comments Gait Comments Pt demonstrates decreased LLE stance time, early LLE heel rise, lack of ankle rocker, decreased LLE toe off at terminal stance. PT-OP-K Range of Motion Start: 01/31/20 14:50 Freq: Status: Active Protocol: Document 01/27/20 15:15 AW (Rec: 01/31/20 15:52 AW [id number]) Knee Goniometric Range of Motion Knee Left Knee ROM WFL Yes Knee ROM Limitations Comments WNL bilaterally Ankle and Foot Goniometric Range of Motion Ankle and Foot Left Active Testing Position Supine Dorsiflexion with Knee Flexed 3 Dorsiflexion with Knee Extended 0 Right Active Testing Position Supine Dorsiflexion with Knee Flexed 12 Dorsiflexion with Knee Extended 12 Toe Range of Motion Toe Left Great Toe MTP Flexion Active (degrees) 14 MTP Extension Active (degrees) 35 DIP Flexion Passive (degrees) 25 Right Great Toe MTP Flexion Active (degrees) 30 MTP Extension Active (degrees) 75 DIP Flexion Active (degrees) 30 Toes ROM Limitations Toe ROM Limitations Muscle Weakness Comments Left great toe rests in adduction at IP joint with limited active extension, flexion, abduction PT-OP-M Strength Start: 01/31/20 14:50 Freq: Status: Active Protocol: Document 01/27/20 15:15 AW (Rec: 01/31/20 15:52 AW [id number]) Ankle/Foot Strength Ankle and Foot Manual Muscle Testing Left Dorsiflexion (L4) 4- Good- Plantarflexion (S1) 4- Good- Inversion 4- Good- Eversion (S1) 4- Good- Right Dorsiflexion (L4) 5 Normal Plantarflexion (S1) 5 Normal Inversion 5 Normal Eversion (S1) 5 Normal Toe Strength Toe Manual Muscle Testing Left Great Toe Flexion 4- Good- Extension 3+ Fair+ Right Great Toe Flexion 5 Normal Extension 5 Normal PT-OP-T Assessment and Plan Start: 01/31/20 14:50 Freq: Status: Active Protocol: Document 08/03/20 09:39 AW (Rec: 08/03/20 09:40 AW [id number]) Physical Therapy Assessment Rehab Potential Rehabilitation Potential Excellent Evaluation Complexity Number of Personal Factors/Comorbidities 1-2 Number of Body Systems Impaired 1-2 Clinical Presentation at Evaluation Stable Impairments Impairments Activity Tolerance,Balance, Functional Activities, Functional Mobility,Gait,Pain, ROM,Sensation,Soft Tissue Mobility,Strength Goals Four Impairment limited ROM affecting involvement in regular activity Marketing Administrator Goal (LTG) Pt will return to yoga practice with limited modifications LTG Duration 04/20/2020 Three Impairment activity tolerance Short Term Goal (STG) Pt will walk 1/2 mile on even terrain without walking boot for enjoyment/exercise without increase in discomfort STG Duration 03/09/2020 Marketing Administrator Goal (LTG) Pt will walk 2 miles on even terrain without walking boot for enjoyment/exercise without increase in discomfort or 1 mile uneven terrain LTG Duration 04/20/2020 Two Impairment impairment in daily function ( 62.5% on LEFS) Short Term Goal (STG) Pt will score 45/80 or better on LEFS to demonstrate improved daily function STG Duration 03/09/2020 Marketing Administrator Goal (LTG) Pt will score 60/80 or better on LEFS to demonstrate improved daily function LTG Duration 04/20/2020 One Impairment pt lacks appropriate HEP Short Term Goal (STG) Pt will be independent with HEP for support of therapy services provided in clinic STG Duration 03/09/2020 Nursing Home Goal (LTG) Pt will be independent with maintenance HEP to sustain gain made in therapy LTG Duration 04/20/2020 Physical Therapy Plan Frequency and Duration Frequency of Treatment 2x/Week Duration of Treatment 12 weeks Plan of Care Start Date 01/27/20 Plan of Care End Date 04/20/20 Therapeutic Interventions Therapeutic Interventions Balance Training,Gait Training ,Home Exercise Program,Joint Mobilizations,Manual Therapy, Neuromuscular Re-education, Orthotic/Prosthetic Management ,Patient/Caregiver Education, Self-Care/Home Management,Soft Tissue Mobilization,Taping, Therapeutic Activities, Therapeutic Exercises Modalities Cold Pack/Ice Massage,Electric Stimulation,Hot Packs Other Therapeutic Interventions Cryocuff Discharge Physical Therapy Discharge Reasons No Longer Attending PT Discharge Comments Pt was offered appointments when outpatient reopened in April 2020 but pt no showed and has not attended PT in months. She will need a new referral if she wishes to return to PT.
== END 2020-08-04 11:53 ==
LOC: PHYS 13:00
PROVIDERS: PCP Podiatrist Foot & Ankle Surgery; Referring Provider Podiatrist Foot & Ankle Surgery; Visit Provider Podiatrist Foot & Ankle Surgery
DX: S96.122A Laceration of muscle and tendon of long extensor muscle of toe at ankle and foot level, left foot, initial encounter (principal); R26.2 Difficulty in walking, not elsewhere classified
CPT/HCPCS: 97010; 97110; 97112; 97116; 97140; 97161